=== PATIENT | female | born 2000 | race Caucasian/White ===

== ENCOUNTER 2024-02-13 16:19 | Emergency (ER) | payer BC, SELFPAY ==
--- NOTE | 2024-02-13 16:23 | ED.GENMED ---
History of Present Illness
General
Chief Complaint: Crisis Evaluation
Source: patient and family
Time Seen by Provider: 02/13/24 16:23
History of Present Illness
History of Present Illness:
Patient is a 23-year-old woman with history of psychiatric history presenting to the emergency department for crisis evaluation. Patient is with her aunt. Patient states that she has not been sleeping as hearing and seeing things. She during
initial evaluation by psychiatry patient was acutely agitated screaming and banging on the wall. She does state that this has happened to her before and she was admitted. She also states that she is suicidal. She does not have a plan to hurt
herself. She has cut herself in the past. She also does state that she has homicidal thoughts but will not elaborate on it. She does admit to using marijuana but denies any other drugs. She otherwise denies any medical complaints. She does
state that she is about to start her. And is having headache.
Past History
Past History
ED Past Medical History: Asthma, Hypercholesterolemia and Psychiatric (PTSD, personality disorder, bipolar, Shizo affective, Panic attacks)
ED Past Surgical History: Tonsilectomy and Other (Ear tubes, )
Social History
Tobacco: Vaping
Alcohol: None
Drug: Marijuana
Personal: Single
Living: with family (Dad)
Phy Exam
Physical Exam
Physical Exam:
GENERAL: in no acute distress
HEENT: normocephalic, extraocular movements intact
NECK: normal inspection
RESPIRATORY: no respiratory distress, clear to auscultation bilaterally
CARDIOVASCULAR: regular rate and rhythm
ABDOMEN/: soft, non-distended, non-tender to palpation, no rebound or guarding
EXTREMITIES: non-tender, no edema/swelling
NEUROLOGIC: awake and alert, moves all extremities
Psych: Alert and oriented x 3, normal mood and affect, cooperative and communicating, no active auditory or visual hallucinations, good insight and judement, intermittently will scream and laugh uncontrollably
SKIN: warm
Course
Orders/Labs/Results
Orders:
Orders
02/13/24 16:23
Lorazepam [Ativan] 2 mg PO NOW STA
02/13/24 16:27
Lorazepam [Ativan] 2 mg .ROUTE .STK-MED ONE
02/13/24 16:30
Lorazepam [Ativan] 2 mg PO NOW STA
Lurasidone HCl [Latuda] 20 mg PO NOW STA
02/13/24 16:36
Lorazepam [Ativan] 2 mg PO NOW STA
02/13/24 16:40
HCG, Urine Qualitative Screen Urgent
Date Specimen was Collected: 02/13/24
Time Specimen was Collected: 16:39
Comment: ADD ON
Urine Drug Abuse Screen Urgent
Date Specimen was Collected: 02/13/24
Time Specimen was Collected: 16:39
02/13/24 16:42
Lorazepam [Ativan] 1 mg PO Q4HPRN PRN
02/13/24 16:45
Albuterol [ProAIR HFA INHALER] 2 puff INH R Q4HPRN PRN
02/13/24 16:56
PSYCHIATRY CONSULT Routine
Consulting Provider: Flora Babb
Was physician already notified: Yes
Test Result ONCE
02/13/24 16:58
Add On- LAB Urgent
Comments:: urine in lab
Tests Added?: hcg qual urine
02/13/24 17:00
Nicotine [Nicoderm Transdermal] 21 mg TRANSDERM DAILY
02/13/24 17:02
Acetaminophen [Tylenol] 650 mg PO NOW STA
02/13/24 17:51
Acetaminophen Urgent
Alcohol Urgent
Complete Blood Count/No Diff Urgent
Comprehensive Metabolic Panel Urgent
Salicylate Urgent
02/13/24 18:00
Montelukast Sodium [Singulair] 10 mg PO QPM
02/13/24 22:00
Trazodone [Desyrel] 100 mg PO HS
02/14/24 08:00
Lamotrigine [Lamictal] 150 mg PO DAILY
02/14/24 18:00
Lurasidone HCl [Latuda] 20 mg PO QPM
Abnormal Lab Results
02/13/24 02/13/24
16:40 17:51
WBC 13.0 H 10^3/uL
(4.8-10.8)
Hct 35.2 L %
(37.0-47.0)
MCV 79.6 L fL
(81.0-99.0)
MCHC 37.5 H g/dL
(33.0-37.0)
Salicylates < 1.0 L mg/dl
(2.0-20.0)
Acetaminophen < 10 L ug/ml
(10-30)
U Marijuana (THC) Screen Positive H
(Negative)
02/13/24 17:51
02/13/24 17:51
Vital Signs
Initial and Last Documented VS:
Initial Vital Signs
Temp Pulse Resp BP Pulse Ox
98.2 F 118 16 160/100 97
02/13/24 16:32 02/13/24 16:32 02/13/24 16:32 02/13/24 16:32 02/13/24 16:32
Last Documented Vital Signs
Temp Pulse Resp BP Pulse Ox
98.2 F 118 16 160/100 97
02/13/24 16:32 02/13/24 16:32 02/13/24 16:32 02/13/24 16:32 02/13/24 16:32
MDM/Problems Addressed
Differential Diagnosis Includes:
23-year-old female presenting to the emergency department for crisis evaluation. Vitals here are unremarkable and exam does show woman who is calm and cooperative though will have episodes of screaming and laughing. She was extremely agitated
initially. Prior to evaluation she did receive 2 mg p.o. Ativan. Aunt is at bedside who does provide most of the history and believes that she is acutely psychotic. Will check blood work. She does have history of and is compliant with her
antipsychotic. After discussion with psychiatry patient will need admission at a psychiatric hospital. She will like to go voluntary at this time. She currently has no medical complaints that she is medically clear. Will give Tylenol for the
headache and cramps.
*Critical Care Note
Total Time (30-74mins, 75-104mins- exclusive of procedures): Not Applicable
Update Note
Update Note:
Blood work unremarkable. Patient with intermittent episodes of agitation though is much improved since she initially arrived. Crisis did evaluate patient. She is also accepted to a psychiatric facility. At this time she is going voluntary.
Pending transfer to [place] at 9:30 PM.
ED Attending Note
-
Portions of this chart may have been created with voice recognition software.� Occasional wrong word or��sound alike� substitutions may have occurred due to the inherent limitations of voice recognition software.
Discharge Plan
Departure
Patient Disposition: Psych Facility
Date of Disposition: 02/13/24
Time of Disposition: 20:37
Discharge Problem:
Psychosis
Prescriptions:
No Action
lamotrigine [Lamictal] 100 MG tablet
100 mg PO DAILY
aripiprazole 2 MG tablet
2 mg PO DAILY
albuterol sulfate 1 PUFF HFA aerosol inhaler
2 puff inhalation R Q4HPRN PRN (Reason: asthma)
ondansetron 4 MG tablet,disintegrating
4 mg PO Q8H PRN (Reason: Nausea) Qty: 10 0RF
Referrals:
Sherrie Kauffman PA-C [Family Provider] -
Interventions
Interventions:
ED-Psychological Assessment Last Done: 02/13/24 16:24
Discharge Date and Time
Print Language: AMHARIC
[2024-02-13 16:32] VITALS: BP 160/100
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
[2024-02-13] MEDS: ATIVAN 2 MG PO (16:37)
[2024-02-13 16:59] LABS: Amphetamines Negative (Negative); Barbiturates Negative (Negative); Benzodiazepines Negative (Negative); Buprenorphine Negative (Negative); Cocaine Negative (Negative); Marijuana Positive (Negative); Methadone Negative (Negative); Methamphetamines Negative (Negative); Opiates Negative (Negative); Phencyclidine Negative (Negative); Tricyclic Antidepressants Negative (Negative)
[2024-02-13] MEDS: NICODERM TRANSDERMAL 21 MG TRANSDERM (17:36)
[2024-02-13] MEDS: LATUDA 20 MG PO (17:36)
[2024-02-13] MEDS: TYLENOL 650 MG PO (17:37)
[2024-02-13 17:58] LABS: Hematocrit 35.2 % (37.0-47.0); Hemoglobin 13.2 g/dL (12.0-16.0); Mean Corp Hgb Conc. 37.5 g/dL (33.0-37.0); Mean Corpuscular Hgb 29.9 pg (27.0-31.0); Mean Corpuscular Volume 79.6 fL (81.0-99.0); Mean Platelet Volume 8.4 fL (7.4-10.4); Platelet Count 293 10^3/uL (130-400); Red Blood Cell Count 4.42 10^6/uL (4.20-5.40); Red Cell Dist. Width 12.4 % (11.5-14.5)
[2024-02-13 18:16] LABS: ALT (SGPT) 21 U/L (0-35); AST (SGOT) 33 U/L (14-36); Acetaminophen < 10 ug/ml (10-30); Albumin 4.5 g/dl (3.5-5.0); Alkaline Phosphatase 74 U/L (38-126); Blood Urea Nitrogen 7 mg/dl (7-17); Calcium 9.7 mg/dl (8.4-10.2); Carbon Dioxide 24 mmol/L (22-30); Chloride 101 mmol/L (98-107); Glucose 99 mg/dl (70-99); Potassium 3.9 mmol/L (3.5-5.1); Salicylate < 1.0 mg/dl (2.0-20.0); Sodium 135 mmol/L (135-145); Total Bilirubin 0.9 mg/dl (0.2-1.3); Total Protein 7.1 g/dl (6.3-8.2); eGFR > 60.00
[2024-02-13 18:18] LABS: Alcohol None Detected
[2024-02-13 19:12] LABS: HCG, Urine Qualitative Screen Negative
== END 2024-02-13 21:25 ==
LOC: EMR 16:19
PROVIDERS: EMERGENCY PHYSICIAN Student in an Organized Health Care Education/Training Program; FAMILY PHYSICIAN Physician Assistant Medical
DX: F29 Unspecified psychosis not due to a substance or known physiological condition (principal); F17.290 Nicotine dependence, other tobacco product, uncomplicated
CPT/HCPCS: 99285; 80053; 80143; 80179; 80306; 81025; 82077; 85027